=== PATIENT | female | born 1950 | race Caucasian/White ===

== ENCOUNTER 2017-04-05 09:11 | Emergency (ER) | payer OTHER, MEDICARE ==
[2017-04-05 09:32] VITALS: TEMP 97.8
--- NOTE | 2017-04-05 09:37 | ED.PDOC ---
History of Present Illness - General Chief Complaint: Blood Pressure Problem Stated Complaint: high blood pressure Time Seen by Provider: 04/05/17 09:37 Source: patient Exam Limitations: no limitations - History of Present Illness Initial Comments: Jacob Neri 66 y/o female stated that she felt disoriented this am-light headed ,dizzy feeling as she was moving around presently feels better at the time she was in ER.Denies tinnitus slurred speech ,weakness,nausea,vomiting had some blurry vision but went away.No history of head injury in the past. Timing/Duration: 4-6 hours Severity: moderate Improving Factors: nothing Worsening Factors: nothing Associated Symptoms: other - see hpi Allergies/Adverse Reactions: Allergies Latex Allergy (Verified 04/05/17 09:32) Home Medications: Ambulatory Orders NK [NK] 04/05/17 Review of Systems - Review of Systems Neurological: States: see HPI All other Systems: Reviewed and Negative, No Change from Baseline Past Medical History (General) - Patient Medical History Hx Seizures: No Hx Asthma: No Hx of COPD: No Hx Cardiac Disorders: No Hx Congestive Heart Failure: No Hx Pacemaker: No Hx Hypertension: No Hx Diabetes: No Surgical History: appendectomy, tonsillectomy, other - hys terectomy - Vaccination History Hx Influenza Vaccination: No Hx Pneumococcal Vaccination: No - Social History Hx Tobacco Use: Yes Hx Alcohol Use: No Hx Substance Use: No Hx Substance Use Treatment: No Hx Depression: No - Activities of Daily Living Patient Lives Alone: No - boyfriend Grooming Ability: Independent Eating (Feeding) Ability: Independent Toileting Ability: Independent - Female History Patient is a Female of Child Bearing Age (10 -59 yrs old): No Family Medical History - Family History Mother Family History: No Known Physical Exam - Physical Exam General Appearance: Alert, No apparent distress Eye Exam: bilateral normal Ears, Nose, Throat: hearing grossly normal, normal ENT inspection, normal pharynx Neck: non-tender, full range of motion, supple Respiratory: chest non-tender, lungs clear, normal breath sounds Cardiovascular/Chest: normal peripheral pulses, regular rate, rhythm, no murmur Peripheral Pulses: radial,right: 2+, radial,left: 2+, dorsalis pedis,right: 2+, dorsalis pedis,left: 2+ Gastrointestinal/Abdominal: normal bowel sounds, non tender, soft, no organomegaly Back Exam: no vertebral tenderness Extremity: non-tender, normal inspection, no pedal edema, no calf tenderness 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 II-XII nml as tested, no motor/sensory deficits, alert, oriented x 3, other - Romberg test negative Skin Exam: normal color, warm/dry Progress - Progress Progress: 04/05/17 09:53 Vital Signs - 8 hr 04/05/17 09:24 Temperature 97.8 F Pulse Rate [ 94 H pulse ox] Respiratory 20 Rate Blood Pressure 149/92 [Left Arm] O2 Sat by Pulse 96 Oximetry 04/05/17 10:59 Laboratory Tests 04/05/17 04/05/17 04/05/17 10:02 10:02 10:02 WBC 6.9 RBC 4.38 Hgb 14.3 Hct 42.5 MCV 96.9 MCH 32.7 H MCHC 33.7 RDW 13.8 Plt Count 247 MPV 10.4 Absolute Neuts (auto) 4.70 Absolute Lymphs (auto) 1.50 Absolute Monos (auto) 0.50 Absolute Eos (auto) 0.10 Absolute Basos (auto) 0.10 Neutrophils % 68.4 Lymphocytes % 21.3 Monocytes % 7.7 Eosinophils % 1.6 Basophils % 1.0 Sodium 137 Potassium 3.9 Chloride 104 Carbon Dioxide 25 Anion Gap 11.9 L BUN 17 Creatinine 0.52 L BUN/Creatinine Ratio 32.7 H Random Glucose 122 H Serum Osmolality 276.7 Calcium 9.2 Troponin I < 0.02 Urine Color Urine Appearance Urine pH Ur Specific [place] Urine Protein Urine Glucose (UA) Urine Ketones Urine Blood Urine Nitrite Urine Bilirubin Urine Urobilinogen Ur Leukocyte Esterase Urine RBC Urine WBC Ur Epithelial Cells Amorphous Sediment Urine Bacteria Urine Opiates Screen Urine Barbiturates Ur Phencyclidine Scrn U Amphetamin/Meth Scrn U Benzodiazepines Scrn U Cocaine Metab Screen U Cannabinoids Screen 04/05/17 04/05/17 10:30 10:30 WBC RBC Hgb Hct MCV MCH MCHC RDW Plt Count MPV Absolute Neuts (auto) Absolute Lymphs (auto) Absolute Monos (auto) Absolute Eos (auto) Absolute Basos (auto) Neutrophils % Lymphocytes % Monocytes % Eosinophils % Basophils % Sodium Potassium Chloride Carbon Dioxide Anion Gap BUN Creatinine BUN/Creatinine Ratio Random Glucose Serum Osmolality Calcium Troponin I Urine Color Yellow Urine Appearance Sl cloudy Urine pH 7.0 Ur Specific [place] 1.020 Urine Protein Negative Urine Glucose (UA) Negative Urine Ketones Negative Urine Blood Negative Urine Nitrite Negative Urine Bilirubin Negative Urine Urobilinogen 0.2 Ur Leukocyte Esterase Negative Urine RBC 0 Urine WBC 0 Ur Epithelial Cells 3-5 Amorphous Sediment 2+ Urine Bacteria 0 Urine Opiates Screen Negative Urine Barbiturates Negative Ur Phencyclidine Scrn Negative U Amphetamin/Meth Scrn Negative U Benzodiazepines Scrn Negative U Cocaine Metab Screen Negative U Cannabinoids Screen Negative - EKG/XRAY/CT EKG: Sinus, nonspecific ST T wave Chg Comments: heart Rate 68 Departure - Departure Clinical Impression: Light-headed feeling, Borderline high blood pressure Time of Disposition: 11:02 Disposition: Discharge to Home or Self Care Condition: Good Departure Forms: ED Discharge - Pt. Copy, Patient Portal Self Enrollment Instructions: DI for High Blood Pressure Referrals: Kenyon Johnston MD [Primary Care Provider] - 1-2 Weeks Home Medications: Ambulatory Orders NK [NK] 04/05/17 Additional Instructions: Follow up with primary md call for appointment as needed
[2017-04-05 11:22] VITALS: BP 142/96; O2SAT 98
== END 2017-04-05 11:25 | disposition home or self-care (01) ==
LOC: ER 09:11
DX: R42 Dizziness and giddiness (principal); I10 Essential (primary) hypertension; Z87.891 Personal history of nicotine dependence; Z91.040 Latex allergy status